=== PATIENT | male | born 1990 | race Hispanic/Latino ===

== ENCOUNTER 2020-11-28 03:53 | Emergency (ER) | payer BC, OTHER ==
[2020-11-28] MEDS ORDERED: NEOMYCIN-POLYMYXIN-HC EAR SUSP 200 DROP/10 ML BOT ONE (04:18)
[2020-11-28] MEDS ORDERED: traMADol HCl 50 MG TAB ONE (04:18)
== END 2020-11-28 04:20 | disposition home or self-care (01) ==
LOC: BURERS 03:53
DX: H60.92 Unspecified otitis externa, left ear (principal)
CPT/HCPCS: 99282

== ENCOUNTER 2024-04-23 19:24 | Emergency (ER) | payer BC ==
[2024-04-23] MEDS ORDERED: Lidocaine 1% w/Epinephrine 1:100K 20 ML VIAL ONE (19:29)
[2024-04-23] MEDS ORDERED: Boostrix 0.5 ML (Tdap) VIAL (>/=7 yrs of age) ONE (20:00)
== END 2024-04-23 20:22 | disposition home or self-care (01) ==
LOC: BURERS 19:24
DX: S81.812A Laceration without foreign body, left lower leg, initial encounter (principal); W20.8XXA Other cause of strike by thrown, projected or falling object, initial encounter; Z23 Encounter for immunization
CPT/HCPCS: 12002; 90471; 90715